=== PATIENT | male | born 1960 | race Caucasian/White ===

== ENCOUNTER 2022-12-16 07:50 | Day surgery (SDC) | payer BC ==
[2022-12-14 12:33] VITALS: BMI 27.4
[2022-12-16] MEDS ORDERED: EPINEPHrine 1 MG/ML AMP ONE (11:16)
[2022-12-16] MEDS ORDERED: Bacitracin Zinc Ointment 30 gm TUBE ONE (11:16)
[2022-12-16] MEDS ORDERED: Lidocaine 1% (PF) 30 ML VIAL ONE (11:16)
[2022-12-16] MEDS ORDERED: fentaNYL PF 100 MCG/2 ML SYRINGE ONE ×2 (11:17)
[2022-12-16] MEDS ORDERED: ePHEDrine 50 MG/ML VIAL ONE (12:15)
[2022-12-16] MEDS ORDERED: Dexamethasone 20 MG/5 ML VIAL ONE (12:15)
[2022-12-16] MEDS ORDERED: Lidocaine 1% PF 5 ML VIAL ONE (12:15)
[2022-12-16] MEDS ORDERED: PROPOFOL 200 MG/20 ML VIAL ONE (12:15)
[2022-12-16] MEDS ORDERED: Ondansetron PF 4 MG/2 ML Vial ONE (12:15)
[2022-12-16] MEDS ORDERED: MINERAL OIL/WHITE PETROLATUM 3.5 GM TUBE ONE (12:20)
== END 2022-12-16 14:49 | disposition home or self-care (01) ==
LOC: SDC 07:50
PROVIDERS: ATTEND Specialist
PROC: 0HX1XZZ Transfer Face Skin, External Approach (ICD-10-PCS; principal; 2022-12-16)
PROC: 0HB1XZZ Excision of Face Skin, External Approach (ICD-10-PCS; principal; 2022-12-16)
DX: C44.319 Basal cell carcinoma of skin of other parts of face (principal); H90.41 Sensorineural hearing loss, unilateral, right ear, with unrestricted hearing on the contralateral side; H81.10 Benign paroxysmal vertigo, unspecified ear; I10 Essential (primary) hypertension; F17.210 Nicotine dependence, cigarettes, uncomplicated; Z86.16 Personal history of COVID-19; Z79.899 Other long term (current) drug therapy; Z88.2 Allergy status to sulfonamides
CPT/HCPCS: 88305; 88331; 88332; 93005; 93010; J0171; J1100; J2001; J2405; J2704; J3490

== ENCOUNTER 2023-02-01 12:57 | Outpatient (CLI) | payer BC | END 2023-02-01 12:58 | disposition home or self-care (01) | LOC: MRI 12:57 | PROVIDERS: ATTEND Specialist | DX: H90.41 Sensorineural hearing loss, unilateral, right ear, with unrestricted hearing on the contralateral side (principal); R90.82 White matter disease, unspecified | CPT/HCPCS: 70553 ==